=== PATIENT | male | born 1980 ===

== ENCOUNTER 2018-08-05 06:12 | Day surgery (SDC) | payer OTHER ==
[~2018-08-05] VITALS: Ht 180.3 cm; Wt 89.8 kg
--- NOTE | 2018-08-05 06:29 | NUR ---
PACIENTE ALERTA Y ORIENTADO X3. REFIERE VENIR POR HEMORROIDES Y PROLAPSO DE LAS MISMAS. REFERIDO POR DRA. JAYSON POOLE. SE UBICA EN CAMA EN AREA DE OBSERVACIO PARA EVALUACION MEDICA. SE PRESENTA A DRA. QUINTERO.
--- NOTE | 2018-08-05 07:08 | NUR ---
SE ORIENTA A PTE SOBRE PROCESO DE VENOPUNCION, CATHERINE DE MUESTRAS, ADMINISTRACION DE MED IV PTE REFIERE ENTENDER INF RODRIGO POR RN DE ALEXANDREO. SE MANTIENE PTE BAJO OBSERVACION RECIBIENDO TRATAMIENTO MEDICO.
[2018-08-05] MEDS ORDERED: NEURONTIN300 MG PO (13:32)
[2018-08-05] MEDS ORDERED: PERCOCET 5-3251 EACH PO (13:32)
[2018-08-05] MEDS ORDERED: RECTICARE30 GM TOP (13:33)
== END 2018-08-05 13:00 | disposition home or self-care (01) ==
LOC: ER 06:12 → SEC-K 07:33 → ER 07:33 → CIR.AMB 08:00 → O/R 08:00 → ER 08:00 → EDSTATUS 11:45 → CIR.AMB 13:00 → SEC-K 14:33 → O/R 14:33 → SEC-K 16:30
DX: K64.5 Perianal venous thrombosis (principal); K64.8 Other hemorrhoids; K64.4 Residual hemorrhoidal skin tags

== ENCOUNTER 2018-08-05 20:29 | Emergency (ER) | payer OTHER ==
[~2018-08-05] VITALS: Ht 177.8 cm; Wt 86.2 kg
[~2018-08-05 20:29] MED LIST: NEURONTIN300 MG PO; PERCOCET 5-3251 EACH PO; RECTICARE30 GM TOP
== END 2018-08-05 23:38 | disposition home or self-care (01) ==
LOC: ER 20:29
DX: G89.18 Other acute postprocedural pain (principal)